=== PATIENT | male | born 1945 | race Caucasian/White ===

== ENCOUNTER 2020-09-18 05:18 | Inpatient (IN) | payer OTHER ==
[~2020-09-18] VITALS: Ht 175.3 cm; Wt 104.8 kg
[2020-09-18 06:08] LABS: Basophils # (auto) 0 10 ^3/uL (0-0.2); Basophils % (auto) 0.3 % (0.0-2.0); Eosinophils # (auto) 0 10 ^3/uL (0-0.8); Eosinophils % (auto) 0.1 % (0.0-7.0); Hematocrit 47.4 % (41.0-53.0); Hemoglobin 16.3 g/dL (13.5-17.5); Lymphocytes # (auto) 0.3 10 ^3/uL (0.4-5.4); Lymphocytes % (auto) 4.6 % (10.0-50.0); Mean Corpuscular Hgb Conc. 34.3 g/dL (32.0-36.0); Mean Corpuscular Volume 87.3 fL (80.0-100.0); Monocytes # (auto) 0.2 10 ^3/uL (0-1.3); Monocytes % (auto) 3.5 % (0.0-12.0); Neutrophils % (auto) 91.5 % (37.0-80.0); Nucleated Red Blood Cells % 0.1 %; Red Blood Cells 5.43 10^6/uL (4.5-5.90); Red Cell Distribution Width 14.4 % (11.8-14.3); White Blood Cell 6.6 10^3/uL (4.4-10.8)
[2020-09-18 06:27] LABS: Potassium 4.2 mmol/L (3.5-5.1)
[2020-09-18 06:44] LABS: Albumin 3.1 g/dL (3.4-5.0); BUN/Creatinine Ratio 15.4; Bilirubin, Total 0.6 mg/dL (0.2-1.0); Calcium 8.9 mg/dL (8.5-10.1); Magnesium 2.4 mg/dL (1.6-2.6); Total Protein 7.7 g/dL (6.4-8.2)
[2020-09-18] MEDS ORDERED: AZITHROMYCIN 500MG/ 250ML 250 ML IV ONE (07:00)
[2020-09-18] MEDS ORDERED: DexAMETHasone SOD PHOS 10MG/1ML VIAL INJ IV ONE (07:00)
[2020-09-18] MEDS ORDERED: IPRATROPIUM BROM 0.5 MG/2.5ML INH SOL NEB ONE (07:00)
[2020-09-18] MEDS ORDERED: ALBUTEROL SULF 2.5 MG/0.5ML(0.5%) NEB SOLN NEB ONE (07:00)
[2020-09-18] MEDS ORDERED: cefTRIAXone 1GM/50ML D5W 50 ML IV ONE (07:00)
[2020-09-18 07:15] LABS: INR 1.13 (0.9-1.15); Partial Thromboplastin Time 35.2 sec (23.0-31.2)
[2020-09-18 07:45] LABS: Lactate Dehydrogenase 819 U/L (87-241)
[2020-09-18 07:51] LABS: CRP High Sensitivity > 19.0 mg/dL (< 0.3)
[2020-09-18] MEDS ORDERED: LORazepam 2MG/ML-1ML VIAL IV ONE (08:00)
[2020-09-18] MEDS ORDERED: AMIODARONE HCL 150 MG in D5W 5% 100 ML IV ONE (08:30)
[2020-09-18] MEDS ORDERED: AMIODARONE 450mg/250ml AE 250 ML IV SCH (08:30)
[2020-09-18] MEDS ORDERED: SUCCINYLCHOLINE CHLORIDE 20 MG/ML 10ML VIAL IV ONE ×2 (08:42→09:00)
[2020-09-18] MEDS ORDERED: ETOMIDATE (2MG/ML) 20ML VIAL IV ONE ×2 (08:42→09:00)
[2020-09-18] MEDS ORDERED: MIDAZOLAM DRIP 50 mg/50mL 50 ML IV ONE (08:43)
[2020-09-18] MEDS: MIDAZOLAM DRIP 50 mg/50mL 50 ML IV SCH ×2 (09:02→20:17)
[2020-09-18] MEDS ORDERED: PROPOFOL 100 ML IV ONE (09:07)
[2020-09-18] MEDS: PROPOFOL 100 ML IV SCH ×3 (09:50→20:18)
[2020-09-18] MEDS ORDERED: NITROGLYCERIN 0.4 MG SL TAB SL PRN (10:15)
[2020-09-18] MEDS ORDERED: MORPHINE SULFATE INJECTION 2 MG/ML SYRG IV PRN (10:15)
[2020-09-18] MEDS ORDERED: SODIUM CHLORIDE 0.9% 1,000 ML IV ONE (10:30)
[2020-09-18] MEDS: NOREPINEPHRINE 8 MG/250ML KIT 250 ML IV SCH (10:35)
[2020-09-18] MEDS ORDERED: fentaNYL Drip 2500mCg/250mlNS 250 ML IV ONE (11:26)
[2020-09-18 11:38] VITALS: BP 104/64
[2020-09-18] MEDS: fentaNYL Drip 2500mCg/250mlNS 250 ML IV SCH (11:45)
[2020-09-18] MEDS ORDERED: SODIUM BICARBONATE 8.4 % INJ 50ML VIAL IV ONE ×2 (17:27→17:35)
[2020-09-18] MEDS: SODIUM BICARBONATE 50ML VIAL 75 ML in SOD CHL 0.45% 1,000 ML IV SCH (17:48)
[2020-09-18 18:22] VITALS: BP 93/54
[2020-09-18 22:14] VITALS: BP 92/58
[2020-09-19 02:26] VITALS: BP 115/64
[2020-09-19] MEDS: MIDAZOLAM DRIP 50 mg/50mL 50 ML IV SCH (02:45)
[2020-09-19 06:10] VITALS: BP 105/63
[2020-09-19 07:36] LABS: Basophils # (auto) 0 10 ^3/uL (0-0.2); Basophils % (auto) 0.1 % (0.0-2.0); Eosinophils # (auto) 0 10 ^3/uL (0-0.8); Hematocrit 39.1 % (41.0-53.0); Hemoglobin 13.8 g/dL (13.5-17.5); Lymphocytes # (auto) 0.3 10 ^3/uL (0.4-5.4); Lymphocytes % (auto) 2.9 % (10.0-50.0); Mean Corpuscular Hemoglobin 30.1 pg (28.0-32.0); Mean Corpuscular Hgb Conc. 35.2 g/dL (32.0-36.0); Mean Corpuscular Volume 85.4 fL (80.0-100.0); Monocytes # (auto) 0.5 10 ^3/uL (0-1.3); Monocytes % (auto) 5.4 % (0.0-12.0); Neutrophils # (auto) 9.3 10 ^3/uL (1.6-8.6); Neutrophils % (auto) 91.6 % (37.0-80.0); Nucleated Red Blood Cells % 0.1 %; Red Blood Cells 4.58 10^6/uL (4.5-5.90); White Blood Cell 10.1 10^3/uL (4.4-10.8)
[2020-09-19] MEDS: PROPOFOL 100 ML IV SCH ×5 (07:48→22:59)
[2020-09-19] MEDS: SODIUM BICARBONATE 50ML VIAL 75 ML in SOD CHL 0.45% 1,000 ML IV SCH ×2 (07:49→23:25)
[2020-09-19 08:34] LABS: Albumin 2.6 g/dL (3.4-5.0); Calcium 8.2 mg/dL (8.5-10.1); Potassium 4.4 mmol/L (3.5-5.1)
[2020-09-19 08:38] LABS: BUN/Creatinine Ratio 18.1; Bilirubin, Total 0.4 mg/dL (0.2-1.0); Total Protein 6.4 g/dL (6.4-8.2)
[2020-09-19 09:47] LABS: Urine Bacteria NONE SEEN /hpf (None Seen); Urine Blood 2+ /uL (Negative); Urine Mucus FEW (None Seen); Urine Specific Gravity 1.023 (1.001-1.035); Urine WBC 23 /hpf (0 - 3); Urine WBC Clumps PRESENT /hpf (None Seen)
[2020-09-19] MEDS: NOREPINEPHRINE 8 MG/250ML KIT 250 ML IV SCH (09:54)
[2020-09-19 10:10] VITALS: BP 112/65
[2020-09-19] MEDS ORDERED: FUROSEMIDE 20 MG/2 ML VIAL IV ONE (10:15)
[2020-09-19] MEDS: AMIODARONE HCL 200 MG TAB PO SCH (10:16)
[2020-09-19] MEDS: ZINC SULFATE 220mg CAP or TAB PO SCH (10:16)
[2020-09-19] MEDS: ASCORBIC ACID 500 MG TAB PO SCH (10:16)
[2020-09-19] MEDS: PANTOPRAZOLE 40 MG/10 ML VIAL INJ IV SCH (10:16)
[2020-09-19] MEDS: CHOLECALCIFEROL (VITD3) 2,000 UNIT CAP/TAB PO SCH (10:16)
[2020-09-19] MEDS: AZITHROMYCIN 500MG/ 250ML 250 ML IV SCH (10:16)
[2020-09-19] MEDS: fentaNYL Drip 2500mCg/250mlNS 250 ML IV SCH (12:11)
[2020-09-19 14:10] VITALS: BP 93/59
[2020-09-19 18:26] VITALS: BP 101/55
[2020-09-19 22:31] VITALS: BP 99/58
[2020-09-20 02:30] VITALS: BP 121/57
[2020-09-20] MEDS ORDERED: AMIODARONE HCL 200 MG TAB NG ONE (03:30)
[2020-09-20] MEDS: ACETAMINOPHEN 650 mg PER 20.3 mL UD NG PRN ×3 (03:47→22:03)
[2020-09-20 06:10] VITALS: BP 108/50
[2020-09-20] MEDS: fentaNYL Drip 2500mCg/250mlNS 250 ML IV SCH (06:32)
[2020-09-20 06:37] LABS: Basophils # (auto) 0 10 ^3/uL (0-0.2); Basophils % (auto) 0.2 % (0.0-2.0); Eosinophils # (auto) 0 10 ^3/uL (0-0.8); Hematocrit 35.5 % (41.0-53.0); Hemoglobin 12.5 g/dL (13.5-17.5); Lymphocytes # (auto) 0.3 10 ^3/uL (0.4-5.4); Lymphocytes % (auto) 3.5 % (10.0-50.0); Mean Corpuscular Hemoglobin 30.1 pg (28.0-32.0); Mean Corpuscular Hgb Conc. 35.1 g/dL (32.0-36.0); Mean Corpuscular Volume 85.7 fL (80.0-100.0); Monocytes # (auto) 0.4 10 ^3/uL (0-1.3); Neutrophils # (auto) 6.8 10 ^3/uL (1.6-8.6); Neutrophils % (auto) 91.3 % (37.0-80.0); Nucleated Red Blood Cells % 0.1 %; Red Blood Cells 4.14 10^6/uL (4.5-5.90); Red Cell Distribution Width 14.1 % (11.8-14.3); White Blood Cell 7.5 10^3/uL (4.4-10.8)
[2020-09-20 07:03] LABS: Albumin 2.3 g/dL (3.4-5.0); BUN/Creatinine Ratio 16.3; Calcium 7.6 mg/dL (8.5-10.1); Potassium 4.4 mmol/L (3.5-5.1)
[2020-09-20 07:07] LABS: Bilirubin, Total 0.5 mg/dL (0.2-1.0); Total Protein 5.9 g/dL (6.4-8.2)
[2020-09-20] MEDS: PROPOFOL 100 ML IV SCH ×4 (07:26→20:07)
[2020-09-20] MEDS: CHOLECALCIFEROL (VITD3) 2,000 UNIT CAP/TAB PO SCH (07:44)
[2020-09-20] MEDS: ZINC SULFATE 220mg CAP or TAB PO SCH (07:44)
[2020-09-20] MEDS: AMIODARONE HCL 200 MG TAB PO SCH (07:44)
[2020-09-20] MEDS: ASCORBIC ACID 500 MG TAB PO SCH (07:44)
[2020-09-20] MEDS: PANTOPRAZOLE 40 MG/10 ML VIAL INJ IV SCH (07:49)
[2020-09-20] MEDS: AZITHROMYCIN 500MG/ 250ML 250 ML IV SCH (08:27)
[2020-09-20] MEDS ORDERED: ACETAMINOPHEN 650 mg PER 20.3 mL UD PO PRN (09:00)
[2020-09-20] MEDS: MIDAZOLAM DRIP 50 mg/50mL 50 ML IV SCH (09:00)
[2020-09-20] MEDS ORDERED: AMIODARONE 450mg/250ml AE 250 ML IV SCH (09:15)
[2020-09-20] MEDS: NOREPINEPHRINE 8 MG/250ML KIT 250 ML IV SCH (10:20)
[2020-09-20] MEDS: SODIUM BICARBONATE 50ML VIAL 75 ML in SOD CHL 0.45% 1,000 ML IV SCH (11:45)
[2020-09-20 14:05] VITALS: BP 109/55
[2020-09-20 18:27] LABS: Creatinine, Urine 181 mg/dL (30.0-125.0); Protein, Urine 92.3 mg/dL (0.0-11.9)
[2020-09-20 18:35] VITALS: BP 87/60
[2020-09-20 18:44] LABS: Sodium Urine 35 mmol/L (40-220)
[2020-09-20 22:20] VITALS: BP 111/59
[2020-09-21] MEDS ORDERED: AMIODARONE 450mg/250ml AE 250 ML IV ONE (00:20)
[2020-09-21] MEDS: PROPOFOL 100 ML IV SCH ×4 (01:35→17:15)
[2020-09-21] MEDS: SODIUM BICARBONATE 50ML VIAL 75 ML in SOD CHL 0.45% 1,000 ML IV SCH (02:05)
[2020-09-21 02:13] VITALS: BP 111/40
[2020-09-21] MEDS: ACETAMINOPHEN 650 mg PER 20.3 mL UD NG PRN ×2 (04:46→11:48)
[2020-09-21 05:49] VITALS: BP 106/52
[2020-09-21] MEDS ORDERED: AMIODARONE 450mg/250ml AE 250 ML IV SCH (06:30)
[2020-09-21 07:02] LABS: Basophils # (auto) 0 10 ^3/uL (0-0.2); Basophils % (auto) 0.3 % (0.0-2.0); Eosinophils # (auto) 0 10 ^3/uL (0-0.8); Hemoglobin 13.1 g/dL (13.5-17.5); Lymphocytes # (auto) 0.3 10 ^3/uL (0.4-5.4); Lymphocytes % (auto) 1.6 % (10.0-50.0); Mean Corpuscular Hemoglobin 29.2 pg (28.0-32.0); Mean Corpuscular Hgb Conc. 33.6 g/dL (32.0-36.0); Mean Corpuscular Volume 86.8 fL (80.0-100.0); Monocytes # (auto) 0.8 10 ^3/uL (0-1.3); Monocytes % (auto) 4.1 % (0.0-12.0); Neutrophils # (auto) 17.5 10 ^3/uL (1.6-8.6); Nucleated Red Blood Cells % 0.1 %; Red Cell Distribution Width 14.5 % (11.8-14.3); White Blood Cell 18.6 10^3/uL (4.4-10.8)
[2020-09-21 07:27] LABS: Potassium 5.1 mmol/L (3.5-5.1)
[2020-09-21 07:33] LABS: Albumin 2.1 g/dL (3.4-5.0); BUN/Creatinine Ratio 14.4; Bilirubin, Total 1.4 mg/dL (0.2-1.0); Calcium 7.6 mg/dL (8.5-10.1); Total Protein 6.1 g/dL (6.4-8.2)
[2020-09-21] MEDS: MIDAZOLAM DRIP 50 mg/50mL 50 ML IV SCH (09:00)
[2020-09-21] MEDS: PANTOPRAZOLE 40 MG/10 ML VIAL INJ IV SCH (09:43)
[2020-09-21] MEDS: AZITHROMYCIN 500MG/ 250ML 250 ML IV SCH (09:43)
[2020-09-21] MEDS: ZINC SULFATE 220mg CAP or TAB PO SCH (09:43)
[2020-09-21] MEDS: ASCORBIC ACID 500 MG TAB PO SCH (09:44)
[2020-09-21] MEDS: CHOLECALCIFEROL (VITD3) 2,000 UNIT CAP/TAB PO SCH (09:44)
[2020-09-21 10:25] VITALS: BP 104/48
[2020-09-21] MEDS: NOREPINEPHRINE 8 MG/250ML KIT 250 ML IV SCH (10:41)
[2020-09-21] MEDS ORDERED: DOPamine 1600MCG/ML D5W 250 ML IV SCH (11:00)
[2020-09-21] MEDS ORDERED: SODIUM BICARBONATE 50ML VIAL 75 ML in SOD CHL 0.45% 1,000 ML IV SCH (11:30)
[2020-09-21] MEDS: fentaNYL Drip 2500mCg/250mlNS 250 ML IV SCH (12:21)
[2020-09-21] MEDS ORDERED: ROCURONIUM 10MG/ML 10ML VIAL IV ONE ×2 (12:42→12:45)
[2020-09-21 12:47] VITALS: BP 108/61
[2020-09-21] MEDS ORDERED: ROCURONIUM BROMIDE 1,000 MG in D5W 5% 150 ML IV SCH (13:00)
[2020-09-21] MEDS ORDERED: SODIUM BICARBONATE 50ML VIAL 150 ML in D5W 5% 1,000 ML IV SCH (13:30)
[2020-09-21] MEDS ORDERED: EPINEPHrine HCL 250 ML IV ONE (14:27)
[2020-09-21] MEDS ORDERED: EPINEPHrine HCL 250 ML IV SCH (14:30)
[2020-09-21] MEDS ORDERED: PHENYLEPHRINE IV 250 ML IV SCH (17:30)
[2020-09-21] MEDS ORDERED: PHENYLEPHRINE IV 250 ML IV ONE (17:36)
[2020-09-21] MEDS ORDERED: SODIUM BICARBONATE 8.4 % INJ 50ML VIAL IV ONE (17:49)
[2020-09-21 18:10] VITALS: BP 95/17
[2020-09-21] MEDS ORDERED: ATROPINE SULF 1 MG/10ml SYR IV ONE ×2 (18:13→18:30)
[2020-09-21] MEDS ORDERED: CALCIUM CHLOR(10%) 100MG/ML 10ML SYRINGE IV ONE (18:13)
[2020-09-21] MEDS ORDERED: SODIUM BICARBONATE 8.4% INJ 50ML SYRINGE IV ONE (18:13)
[2020-09-21] MEDS ORDERED: EPINEPHrine HCL 1 MG/10 ML SYRG IV ONE (18:13)
[2020-09-21] MEDS ORDERED: HEPARIN SODIUM (PORCINE) 5000 UNITS/ML 1ML VIAL SC SCH (22:00)
== END 2020-09-21 18:14 | DRG 871 ==
LOC: ER 05:18 → EDBD 05:18 → TELE 05:19
PROVIDERS: ADMIT Internal Medicine; ATTEND Internal Medicine
PROC: 5A1945Z Respiratory Ventilation, 24-96 Consecutive Hours (ICD-10-PCS; principal; 2020-09-18)
PROC: 0BH17EZ Insertion of Endotracheal Airway into Trachea, Via Natural or Artificial Opening (ICD-10-PCS; 2020-09-18)
PROC: 02HV33Z Insertion of Infusion Device into Superior Vena Cava, Percutaneous Approach (ICD-10-PCS; 2020-09-18)
PROC: 5A09357 Assistance with Respiratory Ventilation, Less than 24 Consecutive Hours, Continuous Positive Airway Pressure (ICD-10-PCS; 2020-09-18)
PROC: 5A12012 Performance of Cardiac Output, Single, Manual (ICD-10-PCS; 2020-09-21)
DX: A41.89 Other specified sepsis (principal); U07.1 COVID-19; J96.01 Acute respiratory failure with hypoxia; J12.82 Pneumonia due to coronavirus disease 2019; R65.21 Severe sepsis with septic shock; N17.0 Acute kidney failure with tubular necrosis; I21.4 Non-ST elevation (NSTEMI) myocardial infarction; J98.11 Atelectasis; J44.0 Chronic obstructive pulmonary disease with (acute) lower respiratory infection; I48.0 Paroxysmal atrial fibrillation; K21.9 Gastro-esophageal reflux disease without esophagitis; N18.9 Chronic kidney disease, unspecified; I12.9 Hypertensive chronic kidney disease with stage 1 through stage 4 chronic kidney disease, or unspecified chronic kidney disease; I46.9 Cardiac arrest, cause unspecified
CPT/HCPCS: 31500; 36415; 36556; 36600; 71045; 76775; 80053; 81001; 82570; 82728; 82805; 82962; 83615; 83735; 83880; 84156; 84300; 84484; 85025; 85379; 85610; 85730; 86141; 87040; 87070; 87205; 87426; 92950; 93005; 93306; 94002; 94003; 94660; 96365; 96366; 96367; 96375; 99291; C9113; G0378; J0171; J0330; J0696; J1100; J2250; J2704; J7060